=== PATIENT | female | born 1965 | race Hispanic/Latino ===

== ENCOUNTER 2023-07-25 18:35 | Emergency (ER) | payer SELFPAY ==
[2023-07-25] MEDS ORDERED: levETIRAcetam 500 MG/5 ML VIAL ONE ×2 (19:52→21:59)
[2023-07-25] MEDS ORDERED: Acetaminophen 650 MG Suppository ONE (19:52)
[2023-07-25] MEDS ORDERED: Ondansetron PF 4 MG/2 ML Vial ONE (19:52)
[2023-07-25 20:24] LABS: #Basophils 0.1 thou/uL (0.0-0.2); #Eosinphils 0.1 thou/uL (0.0-0.7); #Neutrophils 10.5 thou/uL (1.40-6.50); %Basophils 0.6 % (0.0-1.0); %Eosinophils 0.3 % (0.0-10.0); %Lymphocytes 23.4 % (21.0-51.0); %Monocytes 6.6 % (0.0-10.0); %Neutrophils 68.1 % (42.0-75.0); Hematocrit 40.6 % (36.0-47.0); Hemoglobin 12.5 g/dL (12.0-16.0); Mean Corpuscular HGB CONC 30.8 g/dL (32.0-36.0); Mean Corpuscular Volume 74.8 fl (78.0-98.0); Mean Platelet Volume 12.4 fL (7.4-10.4); Platelet Count 260 10x3/uL (130-400); Red Blood Cell (RBC) Count 5.43 mill/uL (4.20-5.40); White Blood Cell (WBC) Count 15.5 10x3/uL (4.8-10.8)
[2023-07-25 20:32] LABS: Bacteria/HPF None Seen HPF (None Seen); Bilirubin Negative (Negative); Blood, Urine Negative (Negative); CAUTI Indications for Culture Alt mental st,lethar; Clarity Clear (Clear); Glucose, Urine (Dipstick) Normal (Negative); Ketone, Urine Negative (Negative); Leukocyte Negative Leu/uL (Negative); Nitrite Negative (Negative); Protein, Urine (Dipstick) Negative (Neg-Trace); RBC/HPF 0-3 HPF (0-3); Squamous Epithelial 0-3 HPF (0-3); Urobilinogen Normal mg/dL (Less than 2); WBC/HPF 0-3 HPF (0-3)
[2023-07-25 20:33] LABS: Urine Culture Reflex No No
[2023-07-25 20:41] LABS: Amphetamine Not Detected (NotDetected); Barbiturates Screen Not Detected (NotDetected); Benzodiazepine Screen Not Detected (NotDetected); Cocaine Metabolite Screen Not Detected (NotDetected); Methadone Not Detected (NotDetected); Methamphetamine Not Detected (NotDetected); Opiate Screen Not Detected (NotDetected); Oxycodone Screen Not Detected (NotDetected); Phencyclidine (PCP) Not Detected (NotDetected); THC/Cannabinoid Screen Not Detected (NotDetected); Tricyclic Screen Not Detected (NotDetected)
[2023-07-25 21:25] LABS: Carbamazepine-Tegretol Less than 1.9 ug/mL (4.0-12.0)
[2023-07-25 21:36] LABS: CellaVision Operator ID lab.abc; Microcytosis SLIGHT = 6-15 cells HPF (0-5); Platelet Adequacy Comment Platelets Normal
[2023-07-25] MEDS ORDERED: cefTRIAXone (ROCEPHIN) 1 GM VIAL ONE (22:12)
[2023-07-25 22:18] LABS: Acetaminophen Less than 10 mcg/mL (10.0-30.0); Alcohol Less than 10.0 mg/dL (Less than 10); Lipase 52 U/L (8-78); Salicylate Less than 8.0 mg/dL (15.0-30.0)
[2023-07-25 22:18] LABS: ALT (SGPT) 16 U/L (8-55); AST (SGOT) 16 U/L (5-34); Alkaline Phosphatase 104 U/L (40-110); Anion Gap 21 mmol/L (10-20); BUN (Urea Nitrogen) 7 mg/dL (9.8-20.1); Bilirubin, Total 0.3 mg/dL (0.2-1.2); Calc. Creatinine Clearance 0 mL/min (70-130); Carbon Dioxide 21 mmol/L (22-29); Estimated GFR 71; Protein, Total 8.2 g/dL (6.0-8.3)
[2023-07-25] MEDS ORDERED: Ampicillin 2 GM VIAL ONE (22:18)
[2023-07-25] MEDS ORDERED: Acyclovir Sodium 620 MG in Sodium Chloride 0.9% 100 ML IVPB SCH (22:30)
[2023-07-25 23:07] LABS: Albumin 4.9 g/dL (3.5-5.0); Chloride 101 mmol/L (98-107); Globulin 3.3 g/dL (2.4-3.5); Sodium 139 mmol/L (136-145)
[2023-07-25 23:08] LABS: Calcium 9.4 mg/dL (7.8-10.44); Glucose 222 mg/dL (70-105); Potassium 3.8 mmol/L (3.5-5.1)
[2023-07-26] MEDS ORDERED: Vancomycin 1 GM/200 ML (FROZEN) BAG ONE (00:05)
[2023-07-26 00:18] LABS: CSF Source CSF; Clarity Clear (Clear); Tube # 4
[2023-07-26 00:54] LABS: CSF, Glucose 145 mg/dl (40-70); CSF, Protein 38 mg/dL (15-40)
[2023-07-26 00:57] LABS: Cell Count Non Hematic 14 %; Lymphocytes 82 %
[2023-07-26 01:04] LABS: Color Of CSF Supernatant COLORLESS (Colorless); Tube # 2; Unspun CSF Color COLORLESS (Colorless)
[2023-07-26 01:11] LABS: Lactic Acid 1.8 mmol/L (0.5-2.2)
[2023-07-26 01:19] LABS: SARS-CoV-2 NAA Rapid Test Not Detected (NotDetected)
[2023-07-26] MEDS ORDERED: Lacosamide 200 MG in Sodium Chloride 0.9% 50 ML IVPB SCH (01:30)
== END 2023-07-26 02:49 | disposition short-term general hospital (02) ==
LOC: EDBD 18:35 → ERS 18:35
DX: G40.901 Epilepsy, unspecified, not intractable, with status epilepticus (principal); R50.9 Fever, unspecified; I10 Essential (primary) hypertension; E11.9 Type 2 diabetes mellitus without complications; Z20.822 Contact with and (suspected) exposure to COVID-19; Z79.84 Long term (current) use of oral hypoglycemic drugs; Z79.899 Other long term (current) drug therapy
CPT/HCPCS: 31500; 36415; 62270; 70450; 71045; 80053; 80156; 80164; 80306; 80307; 81001; 82945; 83605; 83690; 84157; 84443; 85025; 85060; 87040; 87070; 87205; 89051; 93005; 96365; 96366; 96367; 96375; C9254; J0133; J0290; J0696; J1953; J2405; J3370-JW; J3490